=== PATIENT | female | born 1985 | race Two or more races ===

== ENCOUNTER 2020-11-30 13:07 | Emergency (ER) | payer MEDICAID, OTHER ==
[~2020-11-30] VITALS: Ht 157.5 cm; Wt 71.7 kg
[2020-11-30 14:22] VITALS: BP 149/99
== END 2020-11-30 15:36 | disposition home or self-care (01) ==
LOC: ER 13:07
DX: M54.2 Cervicalgia (principal); R20.0 Anesthesia of skin; F41.1 Generalized anxiety disorder
CPT/HCPCS: 70450